=== PATIENT | male | born 1985 | race Caucasian/White ===

== ENCOUNTER 2020-11-30 15:18 | Emergency (ER) | payer MEDICAID ==
[~2020-11-30] VITALS: Ht 177.8 cm; Wt 63.5 kg
[2020-11-30] MEDS ORDERED: METOCLOPRAMIDE HCL 10 MG/2 ML VIAL IV ONE (16:00)
[2020-11-30] MEDS ORDERED: IV NS 0.9% 1,000 ML BAG IV ONE (16:00)
[2020-11-30] MEDS ORDERED: ACETAMINOPHEN 325 MG TABLET PO ONE (16:00)
[2020-11-30] MEDS ORDERED: ACETAMINOPHEN 325 MG TABLET ONE (16:11)
[2020-11-30] MEDS ORDERED: METOCLOPRAMIDE HCL 10 MG/2 ML VIAL ONE (16:11)
[2020-11-30] MEDS ORDERED: SUMATRIPTAN SUCCINATE 6 MG/0.5 ML VIAL SQ ONE (16:13)
[2020-11-30 16:15] LABS: BASOPHILS % (AUTO) 0.5 % (0.0-2.0); EOSINOPHILS % (AUTO) 1.5 % (0.0-6.0); HEMATOCRIT 44 % (39-51); HEMOGLOBIN 14.9 g/dL (13.5-17.5); LYMPHOCYTES # (AUTO) 1.2 /CMM (0.8-4.8); LYMPHOCYTES % (AUTO) 17.5 % (20.0-44.0); MEAN CORPUSCULAR HGB CONC 34 g/dl (31.0-36.0); MEAN CORPUSCULAR VOLUME 92 fL (80-96); MONOCYTES # (AUTO) 1.1 /CMM (0.1-1.30); NEUTROPHILS # (AUTO) 4.3 /CMM (1.8-8.9); NEUTROPHILS % (AUTO) 63.5 % (43.0-81.0); PLATELET COUNT (AUTO) 192 /CMM (150-450); RED BLOOD CELL COUNT(AUTO) 4.77 MIL/uL (4.5-6.0); WHITE BLOOD COUNT (AUTO) 6.7 K/uL (4.3-11.0)
[2020-11-30 16:19] LABS: CALCIUM, SERUM 8.8 mg/dL (8.5-10.1); CREATININE 0.9 mg/dL (0.6-1.3); POTASSIUM 3.9 mmol/L (3.5-5.1)
--- NOTE | 2020-11-30 16:21 | NUR ---
Patient awake alert refused Bp cuff to arm request to palce left thigh vitals taken and filed .
--- NOTE | 2020-11-30 16:22 | NUR ---
To Ct patient refused immitrex explained importance x 2 MD aware .
[2020-11-30] MEDS: SUMATRIPTAN SUCCINATE 6 MG/0.5 ML VIAL SQ ONE ×3 (16:23→16:56)
--- NOTE | 2020-11-30 16:55 | NUR ---
[facility] [phone] LEFT [facility] [place].
[2020-11-30] MEDS ORDERED: methylPREDNISolone SOD SUCC 1,000 MG in IV NS 0.9% 250 ML IV ONE (17:00)
--- NOTE | 2020-11-30 17:16 | NUR ---
Patient verbalized wants to AMA explained Dr. Mahajan explained the risk @ bedside removed RAC saline lock to RAC noted cath tip intact no edema no pain .Patient is ambulatory no difficulties vitals taken and filed .
[2020-11-30 17:18] VITALS: BP 134/67
--- NOTE | 2020-11-30 17:18 | NUR ---
Patient signed AMA form .Adviced \patient to follow up to see PMD .
--- NOTE | 2020-11-30 17:21 | NUR ---
Patient refused Meds IV Dr. Mahajan aware .He agrees to go back to Ed anytime or follow up PMD
[2020-11-30] MEDS ORDERED: LORAZEPAM INJ 2 MG/ML VIAL IV ONE (17:30)
[2020-11-30] MEDS ORDERED: Magnesium 1GM/D5W 100ML PREMIX PIGGYBACK IV ONE (17:30)
[2020-11-30 17:39] LABS: BAND % (MANUAL) 4 % (0.0-5.0); LYMPHOCYTES % (MANUAL) 16 % (16-48); MONOCYTES % (MANUAL) 13 % (0-11.0); NEUTROPHILS % (MANUAL) 67 (42-76)
== END 2020-11-30 17:21 | disposition left against medical advice (07) ==
LOC: ER 15:21
DX: R51.9 Headache, unspecified (principal); R94.31 Abnormal electrocardiogram [ECG] [EKG]; G35 Multiple sclerosis; Z98.890 Other specified postprocedural states; Z88.6 Allergy status to analgesic agent; Z88.8 Allergy status to other drugs, medicaments and biological substances
CPT/HCPCS: 70450; 80048; 85007; 85025; 85652; 85730; 86140; 93005; 96374; 99285; J2765; J2930; J7030; J7050; 36415; J3030

== ENCOUNTER 2021-06-22 15:05 | Emergency (ER) | payer MEDICAID ==
--- NOTE | 2021-06-22 15:51 | NUR ---
PT DECIDED TO LEAVE PRIOR TO TRIAGE. STATES, "OTHER PEOPLE NEEDED HOSPITAL BED BETTER THAN I DO."
== END 2021-06-22 15:53 | disposition left against medical advice (07) ==
LOC: ER 15:17
DX: Z53.21 Procedure and treatment not carried out due to patient leaving prior to being seen by health care provider (principal); M25.569 Pain in unspecified knee